=== PATIENT | female | born 1960 | race Caucasian/White ===

== ENCOUNTER 2020-02-16 13:04 | Emergency (ER) | payer MEDICAID, SELFPAY ==
--- NOTE | ~2020-02-16 | XR_ITS ---
EXAMINATION: XR hand LT min 3V DATE: 02/16/2020 13:59 INDICATION: Left hand pain and swelling. Injury. TECHNIQUE: 3 views of left hand were obtained. COMPARISON: None. FINDINGS: Bone alignment is normal. No fracture. There is mild osteoarthritis of triscaphe joint, sev ere osteoarthritis of first carpometacarpal joint, and mild osteoarthritis of second and fourth metac arpophalangeal joints and distal interphalangeal joint. There is moderate osteoarthritis of third dis brad interphalangeal joint and third metacarpophalangeal joint. IMPRESSION: 1. Polyarticular osteoarthritis. Reviewed, dictated and finalized at location A.
--- NOTE | ~2020-02-16 | XR_ITS ---
EXAMINATION: XR wrist LT min 3V DATE: 02/16/2020 13:58 INDICATION: Left wrist injury and pain swelling. TECHNIQUE: 4 views of left wrist were obtained. COMPARISON: None. FINDINGS: Bone alignment is normal. No fracture. There is mild osteoarthritis of triscaphe joint and severe osteoarthritis of first carpometacarpal joint. IMPRESSION: 1. Polyarticular osteoarthritis. Reviewed, dictated and finalized at location A.
--- NOTE | ~2020-02-16 | XR_ITS ---
EXAMINATION: [id number] DATE: 02/16/2020 13:58 INDICATION: Left chest pain. TECHNIQUE: A frontal view of the chest and 3 views of the left ribs were obtained. COMPARISON: Chest 2 views 05/22/2016 FINDINGS: There is mild atelectasis at the lung bases. No pleural effusion or pneumothorax. The heart size is normal. IMPRESSION: 1. No rib fracture. Reviewed, dictated and finalized at location A. IMPRESSION: 1. No rib fracture.
--- NOTE | 2020-02-16 13:06 | ED.GENADULT ---
HPI - General Adult General Chief complaint: Fall Stated complaint: left hand swollen Time Seen by Provider: 02/16/20 13:06 Source: patient Mode of arrival: ambulatory Limitations: no limitations History of Present Illness HPI narrative: 59-year-old female presents to the [facility] with complaints of left hand and wrist pain and left-sided rib pain. Patient states about 2 days ago she was walking and tripped on a brick and states that she fell. Patient states that she use her left hand and put it out front to try and brace her fall. Patient states since then she has had some bruising and swelling to the left hand. Patient states she also landed on the left side and does have some tenderness to the left rib area. Patient states that she is a smoker. Patient states that she does have increasing pain to the left rib when she coughs. Patient states she recently was treated with pneumonia with azithromycin and ampicillin. Patient denies hitting her head or loss of consciousness at the time of fall. Related Data Home Medications Medication Instructions Recorded Confirmed albuterol sulfate 2 puff INHALATION QID PRN 02/16/20 02/16/20 atorvastatin 40 mg PO HS 02/16/20 02/16/20 budesonide-formoterol [Symbicort] 2 puff INHALATION Q12H 02/16/20 02/16/20 citalopram 40 mg PO DAILY 02/16/20 02/16/20 enalapril maleate 20 mg PO DAILY 02/16/20 02/16/20 ergocalciferol (vitamin D2) 1,250 mcg PO WEEKLY 02/16/20 02/16/20 [Vitamin D2] omega-3 fatty acids 500 mg PO DAILY 02/16/20 02/16/20 Allergies Allergy/AdvReac Type Severity Reaction Status Date / Time No Known Allergies Allergy Verified 02/16/20 13:28 Review of Systems Review of Systems: Narrative: CONSTITUTIONAL: Denies fever, chills, or sweats. EYES: Denies visual changes, redness, or discharge. ENT: Denies rhinorrhea, congestion, sore throat, or otalgia. CARDIOVASCULAR: Denies chest pain, palpitations, or edema. RESPIRATORY: Denies cough or dyspnea. Positive left rib pain GASTROINTESTINAL: Denies abdominal pain, nausea, vomiting, or diarrhea. GENITOURINARY: Denies dysuria or hematuria. SKIN: Denies rash or itching. MUSCULOSKELETAL: Denies back pain, joint pain, or myalgia. Positive left hand and wrist pain and swelling NEUROLOGIC: Denies headache, numbness, or weakness. PSYCHIATRIC: Denies anxiety or depression. PMFSH Comments At the time of my signature I agree with nursing past medical history, surgical, social, and family history. There is no relevant family history pertinent to the presenting complaint. Exam Narrative: Exam Narrative: GENERAL: Well-appearing, well-nourished, and in no acute distress. HEAD: Normocephalic, atraumatic. EYES: PERRLA and EOMI. ENT: Nares clear, no rhinorrhea or epistaxis. Mucous membranes moist. NECK: Supple. No lymphadenopathy CHEST: Patient has rhonchi noted to the right upper right lower lobe. No respiratory distress. Patient able talk in clear complete sentences. No tripoding noted. Patient does have tenderness noted to the 11th rib area on palpation on the left side. HEART: Regular rate and rhythm. No murmur heard. Normal peripheral pulses. ABDOMEN: Soft, nontender, nondistended, normal active bowel sounds. EXTREMITIES: The L hand is with obvious asymmetry when compared to the R hand. Significant swelling with bruising noted to the left hand. Bruising noted over the third fourth and fifth fingers as well as bruising noted to the palm side of the left hand. No erythema, atrophy, or obvious deformity. No open wounds, nail avulsion, tissue avulsion, partial or complete amputation, subungual hematoma, bony deformity. Normal cascade of fingers. Normal flexion and extension of fingers. FDS and FDP intact aganist restistance. No focal fullness, thobbing pain, swelling of fingertip. No tenderness to palpation. Pulses and cap refill. SKIN: Warm, dry, no rash. NEURO: No focal deficits. Alert and oriented x3. Course Reevaluation(s) Reevaluati
[2020-02-16 13:16] VITALS: BP 132/63; PULSE 73; RESP 20; TEMP 36.5; O2SAT 94
== END 2020-02-16 14:40 | disposition home or self-care (01) ==
PROVIDERS: Emergency Provider Nurse Practitioner Family
DX: S60.222A Contusion of left hand, initial encounter (principal); S60.212A Contusion of left wrist, initial encounter; E78.00 Pure hypercholesterolemia, unspecified; F17.210 Nicotine dependence, cigarettes, uncomplicated; I10 Essential (primary) hypertension; J44.9 Chronic obstructive pulmonary disease, unspecified; W19.XXXA Unspecified fall, initial encounter
CPT/HCPCS: 71101; 73110; 73130; 99204; G0463

== ENCOUNTER 2021-11-17 16:34 | Emergency (ER) | payer OTHER, SELFPAY ==
--- NOTE | 2021-11-17 16:35 | ED.BACK ---
HPI - Back Pain/Injury General Chief Complaint: Urogenital-Female Stated Complaint: right back side pain Time Seen by Provider: 11/17/21 16:35 Source: patient and RN notes reviewed History of Present Illness HPI Narrative: Patient is 60-year-old female who presents the urgent care with complaints of right flank pain urinary frequency, and mild suprapubic pressure for the last 4 days. Patient states that she recently started Jardiance and read that it could give you a urinary tract infection . Patient states that she has been taking Tylenol and using heat and massage for her pain. Patient states that her urine is now foul-smelling. Denies any fever, chills, nausea or vomiting. No other acute complaints. No acute distress noted. Patient aware of the plan of care. Some parts of this dictation were generated by voice recognition software and may contain typographical and/or grammatical inaccuracies. Related Data Home Medications Medication Instructions Recorded Confirmed albuterol sulfate 2 puff INHALATION QID PRN 02/16/20 11/17/21 atorvastatin 40 mg PO HS 02/16/20 11/17/21 budesonide-formoterol [Symbicort] 2 puff INHALATION Q12H 02/16/20 11/17/21 citalopram 40 mg PO DAILY 02/16/20 11/17/21 enalapril maleate 20 mg PO DAILY 02/16/20 11/17/21 ergocalciferol (vitamin D2) 1,250 mcg PO WEEKLY 02/16/20 11/17/21 [Vitamin D2] omega-3 fatty acids 500 mg PO DAILY 02/16/20 02/16/20 empagliflozin [Jardiance] 10 mg PO DAILY 11/17/21 11/17/21 gabapentin [Neurontin] 300 mg PO 11/17/21 Allergies Allergy/AdvReac Type Severity Reaction Status Date / Time No Known Allergies Allergy Verified 11/17/21 16:53 Review of Systems Review of Systems: CONSTITUTIONAL: Denies fever, chills, or sweats. EYES: Denies visual changes, redness, or discharge. ENT: Denies rhinorrhea, congestion, sore throat, or otalgia. CARDIOVASCULAR: Denies chest pain, palpitations, or edema. RESPIRATORY: Denies cough or dyspnea. GASTROINTESTINAL: Denies abdominal pain, nausea, vomiting, or diarrhea. GENITOURINARY: Reports of urinary frequency, suprapubic pressure and foul-smelling urine SKIN: Denies rash or itching. MUSCULOSKELETAL: Reports of right flank pain NEUROLOGIC: Denies headache, numbness, or weakness. All other systems reviewed are negative, except as documented in HPI. PMFSH Comments At the time of my signature, I reviewed and agree with the nursing past medical, surgical, social, and family history. There is no relevant family history pertinent to the patient complaint. Exam Narrative: GENERAL: This is a well-nourished, well-developed patient, in no apparent distress. HEAD: normocephalic, atraumatic. EYES: PERRL. Sclera clear/white. Vision is grossly intact. EARS: External ears normal NOSE: External nose normal with no obvious nasal discharge, nares without redness, no rhinorrhea. THROAT: Mucous membranes moist NECK: Neck supple CARDIOVASCULAR: Regular rate and rhythm without murmurs, gallops, or rubs. RESPIRATORY: Slight crackles throughout without wheezing GASTROINTESTINAL: Abdomen soft, very mild suprapubic tenderness, nondistended. SKIN: warm, intact with no suspicious lesions or rash, good texture and turgor. NEURO: awake, alert, and oriented to person, place and time. There were no obvious focal neurologic abnormalities. EXTREMITIES: No clubbing, cyanosis, or edema. BACK: Moderate right CVA tenderness Course Course Level of Care: Express Care Visit Vital Signs Vital signs: Vital Signs Temperature 98.4 F 11/17/21 16:50 Pulse Rate 69 11/17/21 16:50 Respiratory Rate 18 11/17/21 16:50 Blood Pressure 127/54 L 11/17/21 16:50 Pulse Oximetry 97 11/17/21 16:50 Temperature 98.4 F 11/17/21 16:50 Pulse Rate 69 11/17/21 16:50 Respiratory Rate 18 11/17/21 16:50 Blood Pressure 127/54 L 11/17/21 16:50 Pulse Oximetry 97 11/17/21 16:50 Reviewed MDM - Back Pain/Injury MDM Narrative Medical decision making narrat
[2021-11-17 16:50] VITALS: BP 127/54; PULSE 69; RESP 18; TEMP 36.9; O2SAT 97
[2021-11-17 17:10] LABS: Glucose Point of Care 108 mg/dl (65-105)
== END 2021-11-17 17:26 | disposition home or self-care (01) ==
PROVIDERS: Emergency Provider Nurse Practitioner Family; PCP Internal Medicine
DX: N39.0 Urinary tract infection, site not specified (principal); E78.00 Pure hypercholesterolemia, unspecified; I10 Essential (primary) hypertension; J44.9 Chronic obstructive pulmonary disease, unspecified; E11.9 Type 2 diabetes mellitus without complications; F32.A Depression, unspecified
CPT/HCPCS: 81003; 82948; 87077; 87086; 87186; 99214; G0463